=== PATIENT | male | born 1960 | race Caucasian/White ===

== ENCOUNTER 2024-06-14 12:40 | Emergency (ER) | payer MEDICARE, OTHER ==
[2024-06-14] MEDS: Amoxicillin/Clavulanate K 875-125 MG Tab PO ONE ×2 (13:47→14:11)
[2024-06-14] MEDS: Ketorolac 30 MG/ML SDV IM ONE (13:47)
[2024-06-14] MEDS: Amoxicillin/Clavulanate K 875-125 MG Tab ONE (14:12)
== END 2024-06-14 14:10 | disposition home or self-care (01) ==
LOC: DL.ED 12:40
DX: K02.9 Dental caries, unspecified (principal); J01.00 Acute maxillary sinusitis, unspecified; Z86.16 Personal history of COVID-19
CPT/HCPCS: 99282; 99283; A9270; J1885